=== PATIENT | male | born 1985 | race Caucasian/White ===

== ENCOUNTER → 2022-08-05 12:03 | Outpatient (BNVA) | payer MEDICARE, SELFPAY | PROVIDERS: PCP Nurse Practitioner Family; Visit Provider Specialist | DX: G25.3 Myoclonus (principal); M54.50 Low back pain, unspecified; F41.9 Anxiety disorder, unspecified; F81.9 Developmental disorder of scholastic skills, unspecified; F12.90 Cannabis use, unspecified, uncomplicated; Z92.21 Personal history of antineoplastic chemotherapy | CPT/HCPCS: 99204 ==

== ENCOUNTER → 2022-08-12 09:59 | Outpatient (BNVA) | payer MEDICARE, SELFPAY | PROVIDERS: PCP Nurse Practitioner Family; Visit Provider Specialist | DX: G25.3 Myoclonus (principal) | CPT/HCPCS: 95812; 95816 ==